=== PATIENT | female | born 1940 | race Caucasian/White ===

== ENCOUNTER 2019-08-14 09:00 | Emergency (ER) | payer MEDICARE, OTHER ==
[~2019-08-14] VITALS: Ht 165.1 cm; Wt 60.8 kg
[2019-08-14] MEDS ORDERED: CALTRATE-600 W1 EACH PO (09:18)
[2019-08-14] MEDS ORDERED: CARAFATE1 GM/10 ML PO (09:19)
[2019-08-14] MEDS ORDERED: FIBER THERAPY500 MG PO (09:20)
[2019-08-14] MEDS ORDERED: FOLIC ACID1 MG PO (09:20)
[2019-08-14] MEDS ORDERED: OMEPRAZOLE 20 M20 M1 PO (09:21)
[2019-08-14] MEDS ORDERED: LOVAZA1000 MG PO (09:21)
[2019-08-14] MEDS ORDERED: LOTREL 10-20 M1 EACH PO (09:21)
[2019-08-14] MEDS ORDERED: ZOCOR20 MG PO (09:22)
[2019-08-14] MEDS ORDERED: TOPROL XL50 MG PO (09:22)
[2019-08-14] MEDS ORDERED: XARELTO20 MG PO (09:23)
[2019-08-14] MEDS ORDERED: ZETIA10 MG PO (09:23)
[2019-08-14 09:31] VITALS: BP 154/77
[2019-08-14] MEDS ORDERED: PREDNISONE 20 M20 M1 PO (09:31)
== END 2019-08-14 09:31 | disposition home or self-care (01) ==
LOC: M.ERS 09:00
DX: M10.9 Gout, unspecified (principal); I10 Essential (primary) hypertension; E78.00 Pure hypercholesterolemia, unspecified; K21.9 Gastro-esophageal reflux disease without esophagitis; Z90.11 Acquired absence of right breast and nipple; Z85.3 Personal history of malignant neoplasm of breast; Z86.711 Personal history of pulmonary embolism